=== PATIENT | female | born 1950 ===

== ENCOUNTER 2018-12-22 08:10 | Emergency (ER) | payer MEDICARE, MEDICAID ==
[2018-12-22 08:10] VITALS: BMI 31.8
[2018-12-22 08:16] VITALS: O2SAT 98
--- NOTE | 2018-12-22 09:06 | RAD ---
Date of service: 12/22/2018 PROCEDURE: Bilateral Feet Radiographs. HISTORY: left foot pain COMPARISON: None. TECHNIQUE: 6 views obtained. FINDINGS: BONES: No fracture or destructive bony lesions appreciated throughout the bones of the bilateral feet. JOINTS: No dislocation or subluxation evident. Mild right and moderate left hallux valgus deformities are identified with diffuse degenerative changes seen throughout the interphalangeal joints diffusely and the 1st metatarsophalangeal joints as well. SOFT TISSUES: Moderate bilateral plantar calcaneal spurring is seen greater at the left and right calcaneal base is with vascular calcifications also identified within posterior foot soft tissues, left greater than right. Ossification of the insertion of the bilateral Achilles tendons is also apparent. OTHER FINDINGS: None. IMPRESSION: No acute fracture, subluxation or dislocation bilaterally. Degenerative changes are identified predominate the forefeet bilaterally with limited chronic soft tissue findings as discussed above.
[2018-12-22 10:05] VITALS: BP 120/76; PULSE 78; RESP 76; TEMP 97.6
--- NOTE | 2018-12-22 10:07 | ED PDOC ---
Lower Extremity Pain/Injury Time Seen by Provider: 12/22/18 08:30 Chief Complaint (Nursing): Lower Extremity Problem/Injury Chief Complaint (Provider): Lower Extremity Problem/Injury History Per: Patient History/Exam Limitations: no limitations Onset/Duration Of Symptoms: Days (x 2) Current Symptoms Are (Timing): Still Present Additional Complaint(s): 68 year old female with two days of left foot pain. Patient states she has frequent joint pains and follows up with a adjunct professor of [employer] who has her wearing shoe insoles. Display Decorator is out of town and patient is unable to be evaluated. Denies injury or trauma. PMD: Dr. Brayden Angel Past Medical History Reviewed: Historical Data, Nursing Documentation, Vital Signs Vital Signs: Last Vital Signs Temp 97.7 F 12/22/18 08:15 Pulse 80 12/22/18 08:15 Resp 20 12/22/18 08:15 BP 124/60 12/22/18 08:15 Pulse Ox 98 12/22/18 08:15 - Medical History PMH: Anxiety, Depression, Diabetes, HTN, Hypercholesterolemia, Kidney Stones, Chronic Kidney Disease - Surgical History Surgical History: Endoscopy, Hernia Repair - Family History Family History: States: Hypertension - Home Medications Home Medications: Ambulatory Orders Medication Instructions Recorded Glimepiride [amaRYL] 4 mg PO BID 03/03/16 Aspirin [Ecotrin] 81 mg PO DAILY 11/01/16 Carvedilol [Coreg] 3.125 mg PO BID 11/01/16 Cholecalciferol [Vitamin D] 1,000 iu PO BID 11/01/16 Enalapril Maleate 10 mg PO DAILY 11/01/16 GlipiZIDE [Glucotrol] 10 mg PO BID 11/01/16 Insulin Detemir [Levemir] 40 unit SUBCUT BID 11/01/16 LORazepam [Ativan] 1 mg PO HS PRN 11/01/16 Liraglutide [Victoza] 1.8 mg SC DAILY 11/01/16 MetFORMIN [glucOPHAGE] 1,000 mg PO BID 11/01/16 QUEtiapine [SEROquel XR] 50 mg PO BID 11/01/16 Rosuvastatin Calcium [Crestor] 20 mg PO HS 11/01/16 Sertraline [Zoloft] 200 mg PO QAM 11/01/16 cycloSPORINE [Restasis] 1 ea OP BID 11/01/16 Terbinafine [Lamisil At] 1 / TP DAILY #1 gel 11/21/17 - Allergies Allergies/Adverse Reactions: Allergies Allergy/AdvReac Type Severity Reaction Status Date / Time No Known Allergies Allergy Verified 12/22/18 08:24 Review of Systems ROS Statement: Except As Marked, All Systems Reviewed And Found Negative Musculoskeletal: Positive for: Foot Pain (left) Physical Exam - Reviewed Nursing Documentation Reviewed: Yes Vital Signs Reviewed: Yes - Physical Exam Appears: Positive for: No Acute Distress Head Exam: Positive for: ATRAUMATIC, NORMAL INSPECTION, NORMOCEPHALIC Skin: Positive for: Normal Color, Warm, Dry Eye Exam: Positive for: EOMI, Normal appearance, PERRL Cardiovascular/Chest: Positive for: Regular Rate, Rhythm. Negative for: Murmur Respiratory: Positive for: Normal Breath Sounds. Negative for: Respiratory Distress Extremity: Positive for: Tenderness (to palpation over dorsal aspect of left foot). Negative for: Deformity, Swelling Neurological/Psych: Positive for: Awake, Alert, Normal Tone, Oriented. Negative for: Motor/Sensory Deficits - ECG O2 Sat by Pulse Oximetry: 98 (RA) Pulse Ox Interpretation: Normal Medical Decision Making Medical Decision Makin:32 MDM: workup for foot pain Foot x-ray and Motrin for pain relief. 09:02 Left foot x-ray FINDINGS: BONES: No fracture or destructive bony lesions appreciated throughout the bones of the bilateral feet. JOINTS: No dislocation or subluxation evident. Mild right and moderate left hallux valgus deformities are identified with diffuse degenerative changes seen throughout the interphalangeal joints diffusely and the 1st metatarsophalangeal joints as well. SOFT TISSUES: Moderate bilateral plantar calcaneal spurring is seen greater at the left and right calcaneal base is with vascular calcifications also identified within posterior foot soft tissues, left greater than right. Ossification of the insertion of the bilateral Achilles tendons is also apparent. OTHER FINDINGS: None. IMPRESSION: No acute fracture, subluxation or dislocation bilaterally. Degenerative changes are identified predominate the forefeet bilaterally with limited chronic soft tissue findings as discussed above. 09:45 Foot x-ray shows chronic degenerative changes. Patient advised to take Tylenol or naproxen for pain Continue to ambulate as tolerated. Follow up with adjunct professor of [employer]. Scribe Attestation: Documented by Terri Cordero, acting as a scribe Say Sarabia MD Provider Scribe Attestation: All medical record entries made by the Scribe were at my direction and personally dictated by me. I have reviewed the chart and agree that the record accurately reflects my personal performance of the history, physical exam, medical decision making, and the department course for this patient. I have also personally directed, reviewed, and agree with the discharge instructions and disposition. Disposition - Clinical Impression Clinical Impression: Foot pain, left - Patient ED Disposition Is Patient to be Admitted: No - Disposition Disposition: Routine/Home Disposition Time: 09:45 Condition: IMPROVED Additional Instructions: Take Motrin or Tylenol for pain. Follow up with adjunct professor of [employer] history for evaluation of chronic degenerative changes. Continue to use cane as needed for walking. Instructions: Muscle and Bone Pain (DC) Forms: [employer] (Wolof) Print Language: UKRAINIAN
== END 2018-12-22 10:06 | disposition home or self-care (01) ==
LOC: H.ER 08:10
DX: M79.672 Pain in left foot (principal)